=== PATIENT | male | born 2000 ===

== ENCOUNTER 2024-02-27 02:09 | Inpatient (IN) | payer OTHER, SELFPAY ==
[2024-02-27] MEDS ORDERED: Midazolam HCl 2 mg/2 ml Vial ONE (02:19)
[2024-02-27 02:35] LABS: Actual Bicarbonate (HCO3a) 21.9 mEq/L (22-28); Analyzer IN Cardio ER; Base Excess (BEa) -9.9 mEq/L (-2.0 to +3.0); Calcium, Ionized (arterial) 1.15 mmol/L (1.12-1.30); Carboxyhemoglobin (COHb) 0.1 gm% (0.0-3.0); Hematocrit-ABG 49 % (42.0-52.0); Hemoglobin (Hb) 16.8 g/dL (14.0-18.0); O2 Tension (PaO2), arterial 100.4 mmHg (80.0-100.0); Potassium - ABG Lab 4.08 mmol/L (3.70-5.30)
[2024-02-27 02:40] LABS: #Basophils 0.18 10x3/uL (0.0-0.2); %Basophils 1.8 % (0.0-1.0); %Eosinophils 5.4 % (0.0-10.0); %Lymphocytes 48.5 % (21.0-51.0); %Monocytes 5.5 % (0.0-10.0); %Neutrophils 37.4 % (42.0-75.0); Hemoglobin 15.9 g/dL (14.0-18.0); Mean Corpuscular HGB CONC 33.8 g/dL (32.0-36.0); Mean Corpuscular Hemoglobin 31.7 pg (27.0-31.0); Mean Corpuscular Volume 93.8 fL (78.0-98.0); Mean Platelet Volume 9.3 fL (7.4-10.4); Platelet Count 374 10x3/uL (130-400); RBC Distribution Width 11.9 % (11.5-14.5); Red Blood Cell (RBC) Count 5.01 mill/uL (4.70-6.10)
[2024-02-27 02:55] LABS: ALT (SGPT) 116 U/L (8-55); AST (SGOT) 64 U/L (5-34); Albumin 4.1 g/dL (3.5-5.0); Alkaline Phosphatase 131 U/L (40-110); Anion Gap 17 mmol/L (10-20); BUN (Urea Nitrogen) 6 mg/dL (8.9-20.6); Bilirubin, Total 0.1 mg/dL (0.2-1.2); Calc. Creatinine Clearance 0 mL/min (70-130); Calcium 7.9 mg/dL (7.8-10.44); Carbon Dioxide 19 mmol/L (22-29); Chloride 107 mmol/L (98-107); Estimated GFR 106; Glucose 190 mg/dL (70-105); Potassium 4.2 mmol/L (3.5-5.1); Protein, Total 7.1 g/dL (6.0-8.3); Sodium 139 mmol/L (136-145)
[2024-02-27 02:56] LABS: Acetaminophen Less than 10 mcg/mL (Less than 10); Alcohol 321.6 mg/dL (Less than 10); Salicylate Less than 8.0 mg/dL (Less than 8.0)
[2024-02-27] MEDS ORDERED: fentaNYL 50 mcg/mL 1 mL Vial ONE (03:03)
[2024-02-27 03:08] LABS: CO2 Tension 74.4 mmHg (35.0-45.0); Puncture Site Right Radial artery; pH, Arterial 7.086 (7.35-7.45)
[2024-02-27] MEDS ORDERED: Fentanyl CADD 100 ML IV SCH (03:15)
[2024-02-27 03:22] LABS: Bacteria/HPF 1+ HPF (None Seen); Bilirubin Negative (Negative); Blood, Urine 1+ (Negative); CAUTI Indications for Culture Urological Procedure; Clarity Clear (Clear); Glucose, Urine (Dipstick) 100 mg/dL (Negative); Ketone, Urine Negative (Negative); Leukocyte Negative Leu/uL (Negative); Nitrite Negative (Negative); Protein, Urine (Dipstick) 20 mg/dL (Neg-Trace); RBC/HPF 0-3 HPF (0-3); Specific Gravity, Urine 1.002 (1.002-1.036); Squamous Epithelial None Seen HPF (0-3); Urobilinogen Normal mg/dL (Less than 2); WBC/HPF None Seen HPF (0-3); pH, Urine 5.5 (5.0-9.0)
[2024-02-27 03:23] LABS: Urine Culture Reflex No No; Urine Culture Reflex Yes Yes
[2024-02-27 03:25] LABS: Amphetamine Not Detected (NotDetected); Barbiturates Screen Not Detected (NotDetected); Benzodiazepine Screen Not Detected (NotDetected); Cocaine Metabolite Screen Not Detected (NotDetected); Methadone Not Detected (NotDetected); Methamphetamine Not Detected (NotDetected); Opiate Screen Not Detected (NotDetected); Oxycodone Screen Not Detected (NotDetected); Phencyclidine (PCP) Not Detected (NotDetected); THC/Cannabinoid Screen Not Detected (NotDetected); Tricyclic Screen Not Detected (NotDetected)
[2024-02-27 03:57] LABS: Analyzer IN Cardio ER; Base Excess (BEa) -5.8 mEq/L (-2.0 to +3.0); CO2 Tension 51.3 mmHg (35.0-45.0); Calcium, Ionized (arterial) 1.13 mmol/L (1.12-1.30); Carboxyhemoglobin (COHb) 0.3 gm% (0.0-3.0); Hematocrit-ABG 49 % (42.0-52.0); Hemoglobin (Hb) 16.5 g/dL (14.0-18.0); O2 Tension (PaO2), arterial 189.1 mmHg (80.0-100.0); Potassium - ABG Lab 4.39 mmol/L (3.70-5.30)
[2024-02-27 04:03] LABS: Puncture Site Right Radial artery
[2024-02-27 04:04] LABS: ALV-art Gradient 459.775 mmHg (0-20)
[2024-02-27] MEDS ORDERED: Electrolyte Replacement Protocol 1 EACH IVPB PRN (04:20)
[2024-02-27] MEDS ORDERED: Acetaminophen 650 MG Suppository PR PRN ×2 (04:20→04:24)
[2024-02-27] MEDS ORDERED: Acetaminophen 650 MG/20.3 ML UDCUP PO PRN (04:26)
[2024-02-27] MEDS ORDERED: DISCONTINUE PREVIOUS NARCOTIC PAIN MEDICATIONS AND BENZODIAZEPINES FS SCH (04:30)
[2024-02-27] MEDS ORDERED: Morphine 2 MG/ML VIAL SLOW IVP PRN (04:30)
[2024-02-27] MEDS ORDERED: Lorazepam 2 MG/ML VIAL SLOW IVP PRN (04:30)
[2024-02-27] MEDS ORDERED: Propofol BOLUS 1,000 MG/100 ML VIAL IV PRN (04:30)
[2024-02-27] MEDS ORDERED: Propofol 1,000 MG/100 ML VIAL IV PRN (04:30)
[2024-02-27] MEDS ORDERED: Fentanyl BOLUS 250 ML IVPB PRN (04:30)
[2024-02-27] MEDS ORDERED: Ventilator Sedation Protocol 1 EACH FS SCH (04:30)
[2024-02-27] MEDS: Dextrose 5%-Lactated Ringers 1,000 ML IV SCH (05:52)
[2024-02-27] MEDS: Multivitamins, Adult 10 ML, Folic Acid 1 MG, Thiamine HCl 100 MG, Admixture Fee 1 EACH ... IV SCH (06:32)
[2024-02-27] MEDS ORDERED: Acetaminophen 650 MG/20.3 ML UDCUP PER TUBE PRN (06:48)
[2024-02-27] MEDS: Acetaminophen 325 MG TAB PO SCH (08:36)
[2024-02-27 10:36] LABS: Magnesium 1.9 mg/dL (1.6-2.6); Phosphorus 4.9 mg/dL (2.3-4.7)
[2024-02-27] MEDS: Acetaminophen 650 MG/20.3 ML UDCUP PER TUBE SCH (11:21)
[2024-02-27] MEDS: Dexmedetomidine In 0.9 % NaCl 100 ML IVPB SCH (11:22)
[2024-02-27] MEDS: Famotidine/PF 20 mg/2ml Vial SLOW IVP SCH (11:30)
[2024-02-27] MEDS: Magnesium 2 GM/50 ML(in water) 2 GM in Premix 1 BAG IVPB SCH (12:07)
[2024-02-27 12:23] VITALS: BMI 36.0
[2024-02-27] MEDS: Ondansetron PF 4 MG/2 ML Vial IVP PRN (14:19)
[2024-02-27] MEDS: Ketorolac Tromethamine 30 MG (1 mL) VIAL IVP SCH ×2 (18:09→21:26)
[2024-02-27] MEDS ORDERED: traMADol HCl 50 MG TAB PO PRN (21:14)
[2024-02-28 05:41] LABS: #Basophils 0.09 10x3/uL (0.0-0.2); %Basophils 0.7 % (0.0-1.0); %Eosinophils 1.1 % (0.0-10.0); %Monocytes 8.7 % (0.0-10.0); %Neutrophils 73.2 % (42.0-75.0); Hematocrit 43.6 % (42.0-52.0); Hemoglobin 14.7 g/dL (14.0-18.0); Mean Corpuscular HGB CONC 33.7 g/dL (32.0-36.0); Mean Corpuscular Hemoglobin 31.5 pg (27.0-31.0); Mean Corpuscular Volume 93.6 fL (78.0-98.0); Mean Platelet Volume 9.1 fL (7.4-10.4); Platelet Count 270 10x3/uL (130-400); RBC Distribution Width 12.2 % (11.5-14.5); Red Blood Cell (RBC) Count 4.66 mill/uL (4.70-6.10)
[2024-02-28 05:49] LABS: ALT (SGPT) 75 U/L (8-55); AST (SGOT) 29 U/L (5-34); Albumin 3.4 g/dL (3.5-5.0); Alkaline Phosphatase 86 U/L (40-110); Anion Gap 12 mmol/L (10-20); BUN (Urea Nitrogen) 6 mg/dL (8.9-20.6); Bilirubin, Total 0.5 mg/dL (0.2-1.2); Calc. Creatinine Clearance 223 mL/min (70-130); Carbon Dioxide 26 mmol/L (22-29); Chloride 106 mmol/L (98-107); Estimated GFR 126; Globulin 2.6 g/dL (2.4-3.5); Glucose 104 mg/dL (70-105); Magnesium 2.2 mg/dL (1.6-2.6); Potassium 3.8 mmol/L (3.5-5.1); Sodium 140 mmol/L (136-145)
[2024-02-28 13:20] VITALS: BP 150/90; TEMP 98.9
== END 2024-02-28 12:45 | disposition home or self-care (01) | DRG 896 ==
LOC: ERS 02:09 → CCU 05:06 → T4-B 18:51
PROVIDERS: ADMIT Student in an Organized Health Care Education/Training Program; ATTEND Family Medicine
PROC: 4A133R1 Monitoring of Arterial Saturation, Peripheral, Percutaneous Approach (ICD-10-PCS; principal; 2024-02-27)
PROC: 5A1935Z Respiratory Ventilation, Less than 24 Consecutive Hours (ICD-10-PCS; 2024-02-27)
DX: F10.129 Alcohol abuse with intoxication, unspecified (principal); G93.41 Metabolic encephalopathy; J96.01 Acute respiratory failure with hypoxia; K72.00 Acute and subacute hepatic failure without coma; E87.20 Acidosis, unspecified; Z79.899 Other long term (current) drug therapy; Z91.013 Allergy to seafood
CPT/HCPCS: 36415; 36416; 36600; 70450; 71045; 72125; 80053; 80306; 80307; 81001; 82805; 83735; 84100; 85025; 87086; 93005; 94002; 94760; J1885; J2250; J2405; J3010; J3411; J3475; J3490; J7042